=== PATIENT | male | born 1990 | race African-American/Black ===

== ENCOUNTER 2018-07-29 21:57 | Emergency (ER) | payer SELFPAY ==
[~2018-07-29] VITALS: Ht 172.7 cm; Wt 95.3 kg
[2018-07-29] MEDS ORDERED: cloNIDine HCL 0.1 MG TABLET PO ONE (22:30)
[2018-07-29 23:01] VITALS: BP 175/109
[2018-07-29] MEDS ORDERED: LORazepam 1 MG TABLET PO ONE (23:30)
--- NOTE | 2018-08-01 14:40 | PHYS DOC ---
Past Medical History Past Medical History: Depression Past Surgical History: No Surgical History Alcohol Use: Sober Additional Information: PT STATES NO ETOH FOR 6 DAYS Drug Use: Cocaine Social History Narrative: PT REPORTS NO COCAINE FOR 10 DAYS Adult General Chief Complaint Chief Complaint: HYPERTENSION HPI HPI Patient is a 27 year old AA male who presents to the ER via EMS from [facility] due to his blood pressure being higher than they area allowed to treat at the facility. Pt states that he went to [facility] for help with detox from cocaine and alcohol and to have his anxiety and depression medications changed. PT states he last used cocaine 10 days ago and his last drink of alcohol was 6 days ago. He denies any suicidal or homicidal ideations and states he only wants help with detox. He denies any chest pain, shortness of breath, weakness, headache, numbness, tingling, or vision changes. He denies any history of hypertension. Review of Systems Review of Systems Constitutional: Denies fever or chills [] Eyes: Denies change in visual acuity HENT: Denies ear pain or ringing in ears. Respiratory: Denies shortness of breath [] Cardiovascular: denies chest pain Neurologic: Denies headache, focal weakness or sensory changes [] Psychiatric: See HPI Complete systems were reviewed and found to be within normal limits, except as documented in this note. Current Medications Current Medications Current Medications Medications (Trade) Dose Ordered Sig/Charly Start Time Stop Time Status Last Admin Dose Admin Clonidine HCl (Catapres) 0.1 mg 1X ONCE 07/29/18 22:30 07/29/18 22:31 DC 07/29/18 22:27 0.1 MG Lorazepam (Ativan) 2 mg 1X ONCE 07/29/18 23:30 07/29/18 23:31 DC 07/29/18 23:24 2 MG Allergies Allergies Allergies Coded Allergies Type Severity Reaction Last Updated Verified No Known Drug Allergies 07/29/18 No Physical Exam Physical Exam Constitutional: Well developed, well nourished, anxious, non-toxic appearance. [ ] HENT: Normocephalic, atraumatic, bilateral external ears normal, nose normal. [] Eyes: PERRLA, conjunctiva normal, no discharge. [] Neck: Normal range of motion Cardiovascular:Heart rate regular rhythm, no murmur [] Lungs & Thorax: Bilateral breath sounds clear to auscultation [] Skin: Warm, dry, no erythema, no rash. [] Extremities: No cyanosis, ROM intact, no edema. [] Neurologic: Alert and oriented X 3, normal motor function, normal sensory function, no focal deficits noted. [] Psychologic: Affect anxious and paranoid, judgement normal, mood normal. [] Current Patient Data Vital Signs Vital Signs Date Time Temp Pulse Resp B/P (MAP) Pulse Ox O2 Delivery O2 Flow Rate FiO2 07/29/18 23:01 78 16 98 07/29/18 22:27 163/103 07/29/18 22:01 98.1 Room Air 98.1 EKG EKG [] Radiology/Procedures Radiology/Procedures [] Course & Med Decision Making Course & Med Decision Making Pertinent Labs and Imaging studies reviewed. (See chart for details) Patient was given 0.1 mg of clonidine and 2 mg of ativan in the ER. His blood pressure remained elevated and his anxious demeanor continued. Pt was alert and oriented x3. He called the police department while in the ER to report safety concerns. Pt refused to stay in his room and was found pacing the [facility] several times. He was alert and oriented x3 and refused any further treatment. Patient verbalized an understanding of the benefits and risks of staying for treatment and signed out AMA. [] Dragon Disclaimer Dragon Disclaimer This electronic medical record was generated, in whole or in part, using a voice recognition dictation system. Departure Departure Impression: Primary Impression: Left against medical advice Disposition: 07 AGAINST MEDICAL ADVICE Condition: STABLE Referrals: NO PCP (PCP) SHANTA HI APRN Aug 01, 2018 14:40
== END 2018-07-29 23:55 | disposition left against medical advice (07) ==
LOC: ER 21:57
DX: R03.0 Elevated blood-pressure reading, without diagnosis of hypertension (principal); F41.9 Anxiety disorder, unspecified; F32.9 Major depressive disorder, single episode, unspecified
CPT/HCPCS: 99283